=== PATIENT | female | born 1995 | race Caucasian/White ===

== ENCOUNTER 2019-05-22 03:29 | Emergency (ER) | payer OTHER ==
[~2019-05-22] VITALS: Ht 165.1 cm; Wt 104.3 kg
[2019-05-22] MEDS ORDERED: ZOFRAN4 MG PO (05:59)
[2019-05-22] MEDS ORDERED: NORCO 5-325 TA1 EACH PO (05:59)
== END 2019-05-22 06:21 | disposition home or self-care (01) ==
LOC: ED 03:29
DX: N13.2 Hydronephrosis with renal and ureteral calculous obstruction (principal); Z88.8 Allergy status to other drugs, medicaments and biological substances
CPT/HCPCS: 74176; 80053; 81001; 83690; 84703; 85025; 96361; 96374; 96375; 96376; 99284-25; J1170; J2405; J7030